=== PATIENT | male | born 2000 | race African-American/Black ===

== ENCOUNTER 2022-05-08 14:53 | Emergency (ER) | payer MEDICAID ==
[~2022-05-08] VITALS: Ht 193 cm; Wt 73.9 kg
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
[2022-05-08] MEDS ORDERED: IBUPROFEN 600 MG TABLET PO ONE (16:00)
[2022-05-08] MEDS ORDERED: HYDROCODONE/APAP 5/325MG TABLET PO ONE (16:00)
--- NOTE | 2022-05-08 16:00 | NUR ---
PT TAKEN TO RADIOLOGY
[2022-05-08] MEDS ORDERED: IBUPROFEN 600 MG TABLET ONE (16:19)
[2022-05-08] MEDS ORDERED: HYDROCODONE/APAP 5/325MG TABLET ONE (16:19)
[2022-05-08] MEDS ORDERED: IBUP-1957 PO (17:11)
--- NOTE | 2022-05-08 17:18 | NUR ---
Written prescription provided to pt.
--- NOTE | 2022-05-08 17:18 | NUR ---
Patient discharged to home in stable condition. Written and verbal after care instructions given. Patient verbalizes understanding of instruction.
[2022-05-08 17:19] VITALS: BP 123/70
== END 2022-05-08 17:19 | disposition home or self-care (01) ==
LOC: ER 15:00
DX: S13.9XXA Sprain of joints and ligaments of unspecified parts of neck, initial encounter (principal); S46.811A Strain of other muscles, fascia and tendons at shoulder and upper arm level, right arm, initial encounter; S29.9XXA Unspecified injury of thorax, initial encounter; J45.909 Unspecified asthma, uncomplicated; Z88.0 Allergy status to penicillin; V49.9XXA Car occupant (driver) (passenger) injured in unspecified traffic accident, initial encounter; Y93.89 Activity, other specified; Y92.89 Other specified places as the place of occurrence of the external cause; Y99.8 Other external cause status
CPT/HCPCS: 72125-TC; 72128-TC; 73030-TC

== ENCOUNTER 2022-06-11 15:57 | Emergency (ER) | payer MEDICAID ==
[~2022-06-11] VITALS: Ht 190.5 cm; Wt 74.8 kg
[~2022-06-11 15:57] MED LIST: IBUP-1957 PO
--- NOTE | 2022-06-11 16:03 | NUR ---
CALLED TO TRIAGE, NO RESPONSE.
--- NOTE | 2022-06-11 16:25 | NUR ---
RECEIVED PT 22 YRS MALE CAME IN FROM [facility] C/O ABDOMINALE PAIN EPGASTRIC PAIN FOR ONE MONTH ABDOMIN SOFT NONE TENDER TO TOUCH
[2022-06-11 16:57] LABS: BASOPHILS % (AUTO) 0.3 % (0.0-2.0); EOSINOPHILS % (AUTO) 0.1 % (0.0-6.0); HEMATOCRIT 45 % (39-51); LYMPHOCYTES # (AUTO) 1.6 K/uL (0.8-4.8); LYMPHOCYTES % (AUTO) 31.6 % (20.0-44.0); MEAN CORPUSCULAR HGB CONC 32 g/dl (31.0-36.0); MEAN CORPUSCULAR VOLUME 79 fL (80-96); MONOCYTES # (AUTO) 0.3 K/uL (0.1-1.30); MONOCYTES % (AUTO) 5.8 % (2.0-12.0); NEUTROPHILS # (AUTO) 3.2 K/uL (1.8-8.9); NEUTROPHILS % (AUTO) 62.2 % (43.0-81.0); PLATELET COUNT (AUTO) 259 K/uL (150-450); RED BLOOD CELL COUNT(AUTO) 5.61 MIL/uL (4.5-6.0); WHITE BLOOD COUNT (AUTO) 5.2 K/uL (4.3-11.0)
--- NOTE | 2022-06-11 17:10 | NUR ---
AWAITING DIPOSITION OF PATIENT BY .
[2022-06-11 17:13] LABS: ALBUMIN 4.2 g/dL (3.4-5.0); BILIRUBIN,DIRECT 0.2 mg/dL (0.0-0.2); BILIRUBIN,TOTAL 0.5 mg/dL (0.2-1.0); CALCIUM, SERUM 8.9 mg/dL (8.5-10.1); CREATININE 1.3 mg/dL (0.6-1.3); POTASSIUM 3.8 mmol/L (3.5-5.1); TOTAL PROTEIN, SERUM 7.2 g/dL (6.4-8.2)
[2022-06-11] MEDS ORDERED: OMEP40CA21 PO (18:03)
[2022-06-11] MEDS ORDERED: GUAI5SYR GT (18:03)
--- NOTE | 2022-06-11 18:55 | NUR ---
DR.HERNANDIZE GARCIA WITH PT ABOUT LAB RESULT
--- NOTE | 2022-06-11 19:00 | NUR ---
Patient discharged to home in stable condition. Written and verbal after care instructions given. Patient verbalizes understanding of instruction.
[2022-06-11 19:11] VITALS: BP 115/78
== END 2022-06-11 19:13 | disposition home or self-care (01) ==
LOC: ER 16:02
DX: R10.12 Left upper quadrant pain (principal); R05.9 Cough, unspecified; J45.909 Unspecified asthma, uncomplicated; Z88.0 Allergy status to penicillin; Z79.899 Other long term (current) drug therapy
CPT/HCPCS: 36415; 71045-TC; 80048-TC; 80076-TC; 83690-TC; 85025-TC